=== PATIENT | female | born 1975 | race Caucasian/White ===

== ENCOUNTER → 2020-09-16 13:13 | Outpatient (CLI) | payer OTHER, SELFPAY ==
--- NOTE | ~2020-09-16 | US_ITS ---
EXAMINATION: US abdomen complete DATE: 09/16/2020 13:59 INDICATION: Upper abdominal pressure TECHNIQUE: Multiple grayscale and Doppler ultrasound images of the abdomen were obtained. COMPARISON: None FINDINGS: The head, body, and tail of the pancreas are normal. The liver is normal with normal echoge nicity and echotexture. There is a 1.4 x 1.3 cm hypoechoic area projecting adjacent to the left hepat ic lobe of unclear significance. No surface nodularity. Normal hepatopetal flow in the main portal ve in. The gallbladder is normal with no abnormal wall thickening, pericholecystic fluid or stones. The normal common bile duct measures 5 mm. There was no sonographic Templeton sign. The visualized portions of the aorta and inferior vena cava are normal. The right kidney measures 11.3 x 4 x 5.3 cm. The left kidney measures 9.8 x 5.8 x 4.5 cm. The kidneys demonstrate normal parenchymal echogenicity. There is no hydronephrosis. The spleen is normal in reynaldo earance and measures 9.4 cm. IMPRESSION: 1. No sonographic correlate for the patient's symptoms. 2. Soft tissue lesion projecting near the left hepatic lobe of unclear significance. Recommend follow -up CT with contrast. Reviewed, dictated and finalized at location B. IMPRESSION: 1. No sonographic correlate for the patient's symptoms. 2. Soft tissue lesion projecting near the left hepatic lobe of unclear signific ance. Recommend follow-up CT with contrast.
== END ==
PROVIDERS: PCP Family Medicine; Visit Provider Physician Assistant
DX: R10.9 Unspecified abdominal pain (principal)
CPT/HCPCS: 76700

== ENCOUNTER 2020-09-23 16:20 | Outpatient (CLI) | payer OTHER, SELFPAY ==
--- NOTE | ~2020-09-23 | CT_ITS ---
EXAMINATION: CT abdomen pelvis w con DATE: 09/23/2020 16:46 INDICATION: Soft tissue disorder. TECHNIQUE: Computed tomography (CT) of the abdomen and pelvis was performed with 100 cc Omnipaque 350 intravenous contrast. The dose-length product was 502.68 mGy-cm. Automated exposure control and iter ative reconstruction technique were employed. COMPARISON: Ultrasound dated 09/16/2020 FINDINGS: There is a hypodense mass involving the gastric wall along the greater curvature abutting t he left hepatic lobe measuring 2.1 x 1.8 cm axial dimension. This corresponds to the abnormality seen on recent ultrasound. The liver, spleen, pancreas, adrenal glands and kidneys are unremarkable. Gall bladder is present. Nonobstructive bowel gas pattern. No significant vascular abnormality. No lymphad enopathy is identified. No acute osseous abnormality. IMPRESSION: 1. Hypodense mass of the gastric wall measuring 2.1 x 1.8 cm. Differential diagnosis includes benign masses such as polyp, GI stromal tumor, carcinoid as well as malignancy including primary gastric car cinoma, metastases and lymphoma. Recommend GI consultation. Reviewed, dictated and finalized at location A. IMPRESSION: 1. Hypodense mass of the gastric wall measuring 2.1 x 1.8 cm. Differential diag nosis includes benign masses such as polyp, GI stromal tumor, carcinoid as well as malignancy including primary gastric carcinoma, metastases and lymphoma. Re commend GI consultation.
== END 2020-09-23 16:21 | disposition home or self-care (01) ==
LOC: ANHIMG 16:25
PROVIDERS: PCP Family Medicine; Visit Provider Physician Assistant
DX: M79.9 Soft tissue disorder, unspecified (principal)
CPT/HCPCS: 74177; Q9967

== ENCOUNTER 2020-10-21 02:06 | Day surgery (SDC) | payer OTHER, SELFPAY ==
[2020-10-13 08:39] VITALS: BMI 30.1
--- NOTE | 2020-10-21 10:04 | WPDANESEPPF ---
Anes - Initial Pre Proc Eval Procedure: Operation Date: 10/21/20 11:00 Proposed Procedures p Esophagogastroduodenoscopy - Mahamed Bassett MD Date/Time: 10/21/20 10:04 Surgeon: Mahamed Bassett MD Pre Op Diagnosis: abnormal CAT scan Patient Data Age: 45 Gender: F Height: 1.6 m Weight: 77.2 kg Allergies Allergy/AdvReac Type Severity Reaction Status Date / Time tetracycline Allergy Mild Unknown Verified 10/21/20 10:31 Sulfa (Sulfonamide Allergy Unknown Nausea Verified 10/21/20 10:31 Antibiotics) Home Medications Medication Instructions Recorded Confirmed Type albuterol sulfate 90 mcg/actuation 1 inhalation INHALATION Q4H #18 gm 12/18/19 10/13/20 Rx aerosol inhaler fluticasone furoate 100 See Rx Instructions .ROUTE 01/21/20 10/13/20 Rx mcg-vilanterol 25 mcg/dose .COMPLEX #60 each inhalation powder Patient hx anesthesia problems: none Family hx anesthesia problems: none PMFSH Past Medical History Medical History Depression Obesity (BMI 30-39.9) Reactive airway disease Surgical History Surgical History S/P removal of ovarian cyst Family History Family History Mother Neuropathy Grandparent Neuropathy Social History Social History Smoking status: Never smoker Second hand tobacco smoke exposure: No Alcohol intake: current Alcohol use details: socially Substance use: never Substance use type: does not use Living arrangements: with family Gender identity (if verbalized by the patient): Female Spiritual care concerns: No Agree to blood products: Yes Anes - Eval Final PreProcedure Day of Procedure 10/21/20 10:04 Patient weight: obese Heart: regular rate and rhythm Lungs: clear to auscultation and normal air movement Airway: Mallampati scale class II Neurological: alert and oriented Last oral intake: >/= 8 hours ASA classification: II Emergent: no Anesthetic plan: proceed Anesthesia type and monitoring: general GIVS Informed Consent: The patient's anesthetic plan and its attendant risks and benefits were discussed with the patient/family/POA. Questions were solicited and answers provided to the satisfaction of the patient/family/POA.
[2020-10-21 10:31] VITALS: BP 123/71; PULSE 56; RESP 18; TEMP 36; O2SAT 100; BMI 29.7
[2020-10-21] MEDS: LACTATED RINGERS 1,000 ML 150 ML IV CONT (10:41)
--- NOTE | 2020-10-21 11:05 | PM.HPGS ---
History of Present Illness History of Present Illness Consent: Risks, benefits, and alternatives have been discussed and questions answered. Patient agrees to proceed with procedure. Chief complaint: abnormal CAT scan Narrative: Yue Barriga is a 45 year old female who has been having pain in the epigastric area and across the upper abdomen, particularly if she sits or leans forward. A CT scan of the abdomen showed a filling defect in the greater curvature of the stomach. Review of Systems Review of Systems: All systems reviewed & are unremarkable except as noted in HPI and below PMFSH Past Medical History Medical History Depression Obesity (BMI 30-39.9) Reactive airway disease Surgical History Surgical History S/P removal of ovarian cyst Family History Family History Mother Neuropathy Grandparent Neuropathy Social History Social History Smoking status: Never smoker Second hand tobacco smoke exposure: No Alcohol intake: current Alcohol use details: socially Substance use: never Substance use type: does not use Living arrangements: with family Gender identity (if verbalized by the patient): Female Spiritual care concerns: No Agree to blood products: Yes Meds Home Medications and Allergies Home Medications Medication Instructions Recorded Confirmed Type albuterol sulfate 90 mcg/actuation 1 inhalation INHALATION Q4H #18 gm 12/18/19 10/13/20 Rx aerosol inhaler fluticasone furoate 100 See Rx Instructions .ROUTE 01/21/20 10/13/20 Rx mcg-vilanterol 25 mcg/dose .COMPLEX #60 each inhalation powder Allergies Allergy/AdvReac Type Severity Reaction Status Date / Time tetracycline Allergy Mild Unknown Verified 10/21/20 10:31 Sulfa (Sulfonamide Allergy Unknown Nausea Verified 10/21/20 10:31 Antibiotics) Vital Signs Vital Signs - 24 hr 10/21/20 10:31 Temperature 36.0 C L Pulse Rate 56 L Respiratory Rate 18 Blood Pressure 123/71 Pulse Oximetry 100 Exam Const: General: alert Orientation/consciousness: patient oriented x3 Resp: Auscultation: clear to auscultation bilaterally Cardio: Rhythm: regular rhythm GI: GI Palp: Yes Soft to palpation and No Tenderness to palpation present (GI) Neuro: General: patient oriented x3 Assessment and Plan Assessment and plan (1) Abnormal CT scan, gastrointestinal tract: Code(s): R93.3 - Abnormal findings on diagnostic imaging of other parts of digestive tract Status: Acute Assessment and Plan: EGD with possible biopsy or dilatation or cautery.
[2020-10-21 11:29] VITALS: BP 91/52; PULSE 53; RESP 22; O2SAT 97
[2020-10-21 11:39] VITALS: BP 96/55; PULSE 55; RESP 21; O2SAT 97
[2020-10-21 11:49] VITALS: BP 108/71; PULSE 56; RESP 19; O2SAT 98
== END 2020-10-21 11:57 | disposition home or self-care (01) ==
PROVIDERS: PCP Family Medicine; Visit Provider Internal Medicine Gastroenterology
PROC: 0DJ08ZZ Inspection of Upper Intestinal Tract, Via Natural or Artificial Opening Endoscopic (ICD-10-PCS; CPT 43235; principal; 2020-10-21 11:00)
DX: K21.9 Gastro-esophageal reflux disease without esophagitis (principal); D13.1 Benign neoplasm of stomach; F41.8 Other specified anxiety disorders; J45.909 Unspecified asthma, uncomplicated; E66.9 Obesity, unspecified; Z68.29 Body mass index [BMI] 29.0-29.9, adult; Z79.51 Long term (current) use of inhaled steroids
CPT/HCPCS: 43239; 88305; J2001; J2704; J7120

== ENCOUNTER 2022-08-09 11:18 | Outpatient (CLI) | payer OTHER, SELFPAY ==
[2022-08-10 07:36] LABS: Kit Draw Collected
== END 2022-08-09 11:19 | disposition home or self-care (01) ==
LOC: ANHGOSHLAB 11:20
PROVIDERS: PCP Family Medicine; Visit Provider Family Medicine
DX: E66.9 Obesity, unspecified (principal); R53.83 Other fatigue
CPT/HCPCS: 36415

== ENCOUNTER → 2023-03-25 13:57 | Outpatient (CLI) | payer OTHER, SELFPAY ==
--- NOTE | ~2023-03-25 | MM_ITS ---
EXAMINATION: MM screening cora BI w nigel HISTORY: Baseline screening mammogram TECHNIQUE: Craniocaudal and mediolateral oblique 3-D tomosynthesis images were obtained and synthetic 2-D images were generated. CAD analysis was submitted and interpreted. COMPARISON: None, baseline BREAST PARENCHYMAL COMPOSITION: The breasts are heterogeneously dense, which may obscure small masses . FINDINGS: No suspicious mass, calcification, or architectural distortion are identified in either suhas ast to suggest malignancy. IMPRESSION: 1. No mammographic evidence of malignancy. 2. Recommend routine screening mammography in one year. BI-RADS Category 1: Negative Reviewed, dictated and finalized at location A. [employer]
== END ==
PROVIDERS: PCP Obstetrics & Gynecology; Visit Provider Family Medicine
DX: Z12.31 Encounter for screening mammogram for malignant neoplasm of breast (principal)
CPT/HCPCS: 77063; 77067